=== PATIENT | female | born 1975 | race Caucasian/White ===

== ENCOUNTER → 2017-04-03 | Outpatient (CLI) | payer MEDICAID ==
--- NOTE | 2017-04-03 11:28 | CPEKG ---
Heart Rate: 99 RR Interval: 606 P-R Interval: 140 QRSD Interval: 86 QT Interval: 348 QTC Interval: 447 P [place]: 64 QRS [place]: 56 T Wave [place]: 44 EKG Severity - NORMAL ECG - EKG Impression: SINUS RHYTHM Electronically Signed By: Cassie Oconnell 03-Apr-2017 11:54:21
== END ==
LOC: FCP 11:09
PROVIDERS: ATTEND Otolaryngology
DX: Z01.810 Encounter for preprocedural cardiovascular examination (principal)